=== PATIENT | female | born 1940 | race Caucasian/White ===

== ENCOUNTER → 2023-07-29 12:50 | Outpatient (REF) | payer MEDICARE, SELFPAY ==
[2023-07-29 15:14] LABS: Glucose 103 mg/dl (70-99); HDL Cholesterol 70 mg/dl; LDL Cholesterol, Calculated 63 mg/dl; Total Cholesterol 145 mg/dl (50-199); Triglyceride 60 mg/dl (10-149); Very Low Density Lipoprotein 12 mg/dl (0-30)
[2023-07-29 15:32] LABS: Vitamin D, 25-OH*** 39.4 ng/mL (30-80)
== END ==
LOC: REG 12:50
PROVIDERS: ATTENDING PHYSICIAN Family Medicine
DX: R73.03 Prediabetes (principal); E55.9 Vitamin D deficiency, unspecified; E78.5 Hyperlipidemia, unspecified
CPT/HCPCS: 80061; 82306; 82947; 83036

== ENCOUNTER → 2023-11-20 15:28 | Outpatient (REF) | payer MEDICARE, SELFPAY | LOC: RAD 15:28 | PROVIDERS: ATTENDING PHYSICIAN Internal Medicine Critical Care Medicine; FAMILY PHYSICIAN Family Medicine | DX: J47.9 Bronchiectasis, uncomplicated (principal) | CPT/HCPCS: 71046 ==

== ENCOUNTER → 2023-12-30 14:11 | Outpatient (REF) | payer MEDICARE, SELFPAY | LOC: RAD 14:11 | PROVIDERS: ATTENDING PHYSICIAN Internal Medicine Critical Care Medicine; FAMILY PHYSICIAN Family Medicine | DX: J47.9 Bronchiectasis, uncomplicated (principal) | CPT/HCPCS: 71046 ==

== ENCOUNTER → 2024-01-21 12:45 | Outpatient (REF) | payer MEDICARE, SELFPAY | LOC: RAD 12:45 | PROVIDERS: ATTENDING PHYSICIAN Internal Medicine Critical Care Medicine; FAMILY PHYSICIAN Family Medicine | DX: J47.0 Bronchiectasis with acute lower respiratory infection (principal) | CPT/HCPCS: 71046 ==